=== PATIENT | female | born 1980 | race Two or more races ===

== ENCOUNTER → 2017-01-30 | Outpatient (CLI) | payer SELFPAY ==
[2017-01-08 12:29] VITALS: BP 91/54
--- NOTE | 2017-01-30 11:38 | MG ---
HISTORY: Left breast lump status post recent cessation of secondary to mastitis, recently Bilateral digital diagnostic mammography with CAD and left breast ultrasound. Comparison: None FINDINGS: Mammogram: Bilateral CC and MLO projections of the right and left breast were obtained. Extremely d ense fibroglandular tissue is seen to be present which limits sensitivity and specificity. No domin ant suspicious architectural distortion, mass or clustered microcalcifications can be observed to wal[place] ggest malignancy. No skin thickening or nipple retraction is appreciated. No pathological lymphad enopathy can be identified. Benign-appearing calcifications are noted within the right and left [address]. Ultrasound: Multiple grayscale and color Doppler images were obtained in the region of interest at 2 o'clock on the left where there is a horizontally oriented smoothly marginated and well circumscrib ed mixed echogenicity 15 mm nodule with a central echogenic fatty fibrovascular core most compatible with a benign intramammary lymph node without focal or diffuse cortical thickening. No pathologic l ymphadenopathy is identified. There are no focal fluid collections. Fibrocystic changes and ductal e ctasia are noted. There are no suspicious cystic or solid nodules. IMPRESSION: NO RADIOGRAPHIC EVIDENCE OF MALIGNANCY. ACR CATEGORY 2 - benign findings. FOLLOW-UP EXAM 1 YEAR. Diagnostic CAD was utilized and reviewed. * 0 (ZERO) - ASSESSMENT INCOMPLETE; ADDITIONAL IMAGING IS NEEDED. * 1/1 (ONE) - NEGATIVE. * 2/II (TWO) - BENIGN FINDINGS. * 3/III (THREE) - PROBABLY BENIGN FINDING; SHORT INTERVAL FOLLOW-UP SUGGESTED. * 4/IV (FOUR) - SUSPICIOUS ABNORMALITY; BIOPSY SHOULD BE CONSIDERED. * 5/V (FIVE) - HIGHLY SUSPICIOUS OF MALIGNANCY; BIOPSY SHOULD BE PERFORMED. A NEGATIVE X-RAY REPORT SHOULD NOT DELAY BIOPSY IF A DOMINANT OR CLINICALLY SUSPICIOUS MASS IS PRESENT; 4 TO 8 PERCENT OF CANCERS ARE NOT IDENTIFIED BY X-RAY. A NEG ATIVE REPORT MAY REINFORCE THE CLINICAL IMPRESSION. ADENOSIS AND DENSE BREASTS MAY OBSCURE AN UNDER LYING NEOPLASM. Reported By:
== END ==
LOC: RAD 09:38
PROVIDERS: ATTEND Obstetrics & Gynecology Obstetrics
DX: N63 Unspecified lump in breast (principal)
CPT/HCPCS: 76642; 77066